=== PATIENT | male | born 1975 | race Hispanic/Latino ===

== ENCOUNTER 2021-08-23 08:20 | Outpatient (CLI) | payer OTHER | END 2021-08-23 08:21 | disposition home or self-care (01) | LOC: CSHWCC 08:20 | PROVIDERS: ATTEND Nurse Practitioner Family | DX: T25.221A Burn of second degree of right foot, initial encounter (principal); E66.3 Overweight; G89.11 Acute pain due to trauma; I10 Essential (primary) hypertension; T25.32 Burn of third degree of foot; X10.2XXS Contact with fats and cooking oils, sequela | CPT/HCPCS: 16020; 36416; 99203; G0463 ==

== ENCOUNTER 2021-09-13 10:29 | Outpatient (CLI) | payer SELFPAY | END 2021-09-13 10:30 | disposition home or self-care (01) | LOC: CSHWCC 10:29 | PROVIDERS: ATTEND Nurse Practitioner Family | DX: T25.32 Burn of third degree of foot (principal); T25.221D Burn of second degree of right foot, subsequent encounter; G89.11 Acute pain due to trauma; E66.3 Overweight; I10 Essential (primary) hypertension; X10.2XXD Contact with fats and cooking oils, subsequent encounter ==